=== PATIENT | male | born 1950 | race Caucasian/White ===

== ENCOUNTER 2024-12-20 21:00 | Inpatient (IN) | payer OTHER ==
[~2024-12-20] VITALS: Ht 177.8 cm; Wt 71.0 kg
--- NOTE | 2024-12-20 21:32 | Physician Documentation ---
History of Present Illness ~ Chief Complaint: Foot pain Stated Complaint: TOES ARE TURNING COLORS Time Seen by MD: 21:25 HPI This is a 74-year-old gentleman with hostile untreated medical comorbidities but no known peripheral arterial disease presents for evaluation of discoloration to his right foot that has been present for about a month, getting worse for the last several days, markedly painful today. No palliating or aggravating factors. Did not attempt to treat it. Not clear why he waited to come in until today but states that he finally had enough. He states that he quit smoking about 20 years ago but restarted a month ago, right about the time he started developing discoloration of the toes. He has been bed-bound for the last several months due to his chronic back pain. No change in back pain. Denies any other symptoms. Medication Reconciliation Allergies: Coded Allergies: No Known Allergies (Unverified , 12/20/24) Review of Systems ROS 10 point review of systems was performed and unless noted above in HPI is negative for acute process/complaint. Physical Exam Vital Signs: Temperature: 98.7, Source: Oral, Heart Rate: 89, Respiratory Rate: 16, BP: 198/101, Pulse Oximetry: 96, Weight: 71.000 Oxygen Flow Rate: 0 Physical Exam GENERAL: Awake, alert, oriented, GCS 15, no apparent distress, non-toxic appearing, answers questions, follows commands appropriately. HEENT: Atraumatic, normocephalic, pupils equal, extraocular muscles intact, sclerae anicteric, mucus membranes moist, oropharynx is clear, no stridor. NECK: supple, full active range of motion, trachea midline, no thyromegaly, no lymphadenopathy, no JVD. CARDIOVASCULAR: regular rate/rhythm, no murmurs/gallops/rubs, Pulses are 2+ in all extremities and symmetric. Capillary refill less than 2 seconds. PULMONARY: Nonlabored, good air movement ,no respiratory distress, speaking in full sentences, clear to auscultation bilaterally, no wheezing, no ronchi, no rales, no accessory muscle use. GASTROINTESTINAL: Soft, non-tender, non-distended, normal active bowel sounds, no organomegaly, no pulsatile masses, no CVA tenderness. NEUROLOGIC: Lucid with normal mental status. Normal facial symmetry. Moves all extremities symmetrically and with purpose. No truncal ataxia. Speech is fluid without evidence of dysarthria or aphasia, no focal deficits appreciated. MUSCULOSKELETAL: There is full range of motion of all extremities. There is no joint pain or joint swelling or joint erythema. There is no muscle pain or tenderness or swelling. EXTREMITIES: warm, well-perfused, no cyanosis, no clubbing, no edema, no acute deformities. Skin: warm, dry, no rashes or lesions, no jaundice, no petechiae orpurpura. No ecchymosis. PSYCHIATRIC: Normal affect, normal insight, normal concentration. Focused exam: [] Right foot is examined. There is dusky purple discoloration to toes one through four with a markedly affected 1st digit. No cap refill on the digits. Range of motion is full. Progress Results/Orders Results/Orders Orders - FACUNDO WEBER DO Saline Lock (12/20/24 21:26) Cta Abdomen Lower Extr Runoff (12/20/24 22:30) Completed Orders - FACUNDO WEBER DO Electrocardiogram (12/20/24 21:26) Cbc/Diff (12/20/24 21:26) CK (12/20/24 21:26) Pt Inr (12/20/24 21:26) PTT (12/20/24 21:26) MG (12/20/24 21:26) Hs Troponin I W Calculations (12/20/24 21:26) CMP (12/20/24 21:26) Cta Abdomen Lower Extr Runoff (12/20/24 22:30) Iohexol 350mg/Ml 50ml Inj (Omnipaque 350 (12/20/24 22:19) Iohexol 350mg/Ml 100ml (Omnipaque 350mg/ (12/20/24 22:19) Hydrocodone/Apap 10/325 (Custer 10/325mg (12/20/24 23:45) Morphine 4mg/Ml Inj. (Morphine Inj.) (12/21/24 03:05) Ondansetron Inj. (Zofran 4mg/2ml Vial) (12/21/24 03:05) Medications Received in ER Medications (Trade) Dose Ordered Sig/[place] Route PRN Reason Start Time Stop Time Status Last Admin Dose Admin (Custer 10/325mg tab) 1 tab ONCE ONCE PO 12/20/24 23:45 12/20/24 23:46 DC 12/20/24 23:52 1 TAB (morphine inj.) 4 mg ONCE ONCE IV 12/21/24 03:05 12/21/24 03:06 DC 12/21/24 03:18 4 MG (Zofran 4mg/2ml vial) 4 mg ONCE ONCE IV 12/21/24 03:05 12/21/24 03:06 DC 12/21/24 03:18 4 MG Vital Signs 12/20/24 12/20/24 12/20/24 12/20/24 21:20 22:32 23:35 23:52 Temp 98.7 Pulse 89 92 Resp 16 19 19 B/P (MAP) 198/101 198/93 (128) Pulse Ox 96 97 O2 Flow Rate 0 0 12/21/24 12/21/24 12/21/24 12/21/24 00:33 01:00 03:00 03:18 Pulse 73 66 64 Resp 14 19 17 19 B/P (MAP) 146/73 (97) 118/61 (80) 135/49 (77) Pulse Ox 98 96 98 O2 Flow Rate 0 0 0 12/21/24 12/21/24 04:06 04:19 Pulse 67 Resp 15 17 B/P (MAP) 141/81 (101) Pulse Ox 97 O2 Flow Rate 0 Laboratory Tests Test 12/20/24 21:34 White Blood Count 12.3 H Red Blood Count 3.67 L Hemoglobin 10.5 L Hematocrit 32.3 L Mean Corpuscular Volume 87.9 Mean Corpuscular Hemoglobin 28.6 Mean Corpuscular Hemoglobin Concent 32.5 L Red Cell Distribution Width 14.2 Platelet Count 460 H Mean Platelet Volume 7.1 L Neutrophils (%) (Auto) 66.4 Lymphocytes (%) (Auto) 24.6 Monocytes (%) (Auto) 5.2 Eosinophils (%) (Auto) 3.3 Basophils (%) (Auto) 0.5 Neutrophils # (Auto) 8.2 H Lymphocytes # (Auto) 3.0 Monocytes # (Auto) 0.6 Eosinophils # (Auto) 0.4 Basophils # (Auto) 0.1 CBC Comment Prothrombin Time 9.8 INR International Normalized Ratio 1.0 Activated Partial Thromboplast Time 25 Coagulation Comments Sodium Level 141 Potassium Level 4.3 Chloride Level 107 Carbon Dioxide Level 23.1 L Anion Gap 11 Blood Urea Nitrogen 36 H Creatinine 1.70 H Estimated GFR/1.73 m2 40 BUN/Creatinine Ratio 21.2 H Glucose Level 116 H Calcium Level 9.1 Magnesium Level 2.3 Total Bilirubin 0.4 Aspartate Amino Transf (AST/SGOT) 28 Alanine Aminotransferase (ALT/SGPT) 25 Alkaline Phosphatase 83 Total Creatine Kinase 178 Troponin I High Sensitivity 21 Total Protein 8.1 Albumin 4.0 Globulin 4.1 Albumin/Globulin Ratio 1.0 L Chemistry Comments Medical Decision Making Findings Facility Status: ED Holds, [facility] process The plan was discussed with the patient, who demonstrates clear understanding of the plan and is in agreement with the plan unless otherwise noted in the chart. All questions have been answered, all concerns were addressed unless otherwise documented. I was available throughout their ED stay for frequent reassessment and questions. Differential Diagnoses (considered and possible or likely): [Peripheral arterial disease, dry gangrene, less likely wet gangrene, clinically not consistent with trench foot, unlikely to represent gout, unlikely to represent cellulitis] ??Differential Diagnoses (considered and unlikely, not requiring evaluation currently): [See above] MDM Data Please see [facility] for the following: Independent Historians and external Records Review. Historian: [Patient] Independent Historians: ?[None] Medication Management: [Reviewed medication list] Social History and determinants: [Reviewed] Please see the body of the note for the following: Any independent interpretations of ECG, imaging studies. All vitals signs/haemodynamics, ordered tests were independently reviewed and interpreted by myself. Nursing triage complaint and vitals reviewed, additional nursing notes were reviewed as available and I agree unless otherwise noted or documented in contradiction in the chart Vital Signs: Independently reviewed Labs: Independently interpreted Imaging: Independently interpreted Old Medical Records: Independently reviewed, see HPI for relevant summary and information Pulse Oximetry: [98%] interpreted as [normal on room air] by me [Accounting Auditor: [Regular Rate, Regular rhythm, no ectopy, NSR] reviewed and interpreted by me] Additionally notably showing: [Hemodynamically stable. Unremarkable laboratory workup. CT shows high brain regularly 90% shows sudden stenosis of the distal right SFA secondary to atheromatous clot.] Tests considered but not ordered include: [Not applicable] Social Determinants of Health Impact: Patient was evaluated in [facility] [place] to healthcare due to below par ratio of patient to medical providers. [] Comorbid Conditions Impacting Present Evaluation and Care/Treatment: [Smoking] Management Discussions with other Healthcare Providers: [Dr. Jordan, vascular surgery.] He requests admission of the patient, we will see him on an inpatient arita. Hospitalist regarding admission Treatment and Disposition Medication Management (Given or considered): [Pain control]. See EMR for details Consideration for Hospitalization/Escalation/Deescalation of Care: Admission for observation has been considered, is necessary for further management of his peripheral arterial disease at the request a specialist ?ED Course:?[No clinical deterioration] ?Shared decision making:?[] Code status:?FULL Please see the full Electronic Medical Record for full details of nursing documentation, medications list, other records of complete past medical history and conditions, vital signs, laboratory studies, and any radiologic study interpretations by radiologists. Portions of this note were completed using [employer] dictation software and as a result there may exist minor errors in spelling. I have reviewed elements of past family and social history and agree as included in note. Departure Impression: Primary Impression: Stenosis of superficial femoral artery Additional Impression: Peripheral arterial disease Referrals: NO PRIMARY CARE PROVIDER (PCP) Signature Scribe Signature: No scribe Attestation: This note accurately reflects clinical decisions, work performed by myself, DO GUS Jimenez NICHOLAS M DO Dec 20, 2024 21:32
[2024-12-20 21:41] LABS: BASOPHILS # (AUTO) 0.1 X10'3 (0-0.2); BASOPHILS % (AUTO) 0.5 % (0-1); EOSINOPHILS # (AUTO) 0.4 X10'3 (0-0.9); EOSINOPHILS % (AUTO) 3.3 % (0-6); HEMATOCRIT 32.3 % (42.0-52.0); HEMOGLOBIN 10.5 g/dl (14.0-17.9); LYMPHOCYTES % (AUTO) 24.6 % (21-51); MEAN CORPUSCULAR HEMOGLOBIN 28.6 PG (27.0-31.0); MEAN CORPUSCULAR HGB CONC 32.5 g/dL (33.0-36.5); MEAN CORPUSCULAR VOLUME 87.9 FL (78-98); MEAN PLATELET VOLUME 7.1 FL (7.4-10.4); MONOCYTES # (AUTO) 0.6 X10'3 (0-0.9); MONOCYTES % (AUTO) 5.2 % (2-12); NEUTROPHILS # (AUTO) 8.2 X10'3 (1.8-7.7); NEUTROPHILS % (AUTO) 66.4 % (42-75); PLATELET COUNT 460 X10'3 (140-440); RED BLOOD COUNT 3.67 X10'6 (4.70-6.10); RED CELL DISTRIBUTION WIDTH 14.2 % (11.5-14.5); WHITE BLOOD COUNT 12.3 X10'3 (4.5-11.0)
--- NOTE | 2024-12-20 21:41 | ELECTROCARDIOGRAPH REPORT ---
[facility] Test Date: 2024-12-20 Test Time: 21:37:21 Pat Name: TONY MCCLENDON Department: [facility]- Patient ID: [facility]-[id number] Room: Gender: M Shingles Roofer: : 1950 Requested By: FACUNDO WEBER Order Number: [id number] Reading MD: Measurements Intervals [place] Rate: 83 P: -17 WY: 208 QRS: -24 QRSD: 103 T: 55 QT: 362 QTc: 426 Interpretive Statements Sinus rhythm Sinus pause Borderline left axis deviation Abnormal R-wave progression, early transition Please click the below link to view image of tracing.
[2024-12-20 21:53] LABS: APTT 25 SECONDS (22-32); PROTHROMBIN TIME 9.8 SECONDS (9.0-12.0)
[2024-12-20 21:55] LABS: ALANINE AMINOTRANSFERASE 25 U/L (12-78); ALKALINE PHOSPHATASE 83 IU/L (46-116); ANION GAP 11 (8-16); ASPARTATE AMINO TRANSFERASE 28 U/L (10-37); BILIRUBIN,TOTAL 0.4 MG/DL (0.1-1.0); BLOOD UREA NITROGEN 36 MG/DL (7-18); BUN/CREATININE RATIO 21.2 (10.0-20.0); CALCIUM 9.1 MG/DL (8.5-10.1); CHLORIDE 107 MMOL/L (99-107); CREATINE KINASE 178 U/L (39-308); GLUCOSE 116 MG/DL (70-104); MAGNESIUM 2.3 MG/DL (1.5-2.4); POTASSIUM 4.3 MMOL/L (3.5-5.1); SODIUM 141 MMOL/L (135-145); TOTAL CARBON DIOXIDE 23.1 MMOL/L (24-32); TOTAL PROTEIN 8.1 G/DL (6.4-8.2); eCRCL 39 ML/MIN; eGFR 40 ML/MIN
[2024-12-20] MEDS ORDERED: iohexol 350 MG/ML 50ML vial IV ONE (22:19)
[2024-12-20] MEDS ORDERED: iohexol 350MG/ML 100ml bottle IV ONE (22:19)
[2024-12-20] MEDS: HYDROcodone/acetaminophen 10/325mg tab PO ONE (23:52)
[2024-12-21] MEDS: ondansetron/PF 4mg/2ml inj IV ONE (03:18)
[2024-12-21] MEDS: morphine 4 MG/ML inj SYRINge IV ONE (03:18)
--- NOTE | 2024-12-21 03:58 | RADIOLOGY REPORT ---
Examination: CT CTA ABDOMEN LOWER EXTR RUNOFF CLINICAL HISTORY: poor perfusion RLE/discoloured forefoot Comparison: None Technique: Using helical technique, CT data from the lung bases through the toes was obtained during rapid IV contrast infusion. The examination was timed to the arterial system to generate a CT angiogr aphic study. 3D images were generated at an independent work station. Dose reduction techniques inclu ded automated exposure control. Radiation Dose Information: CT Dose: CTDI volume is 4.4 mGy. Dose-length product is 1701 mGy*cm Findings: Vascular: Abdominal aorta: Normal caliber, patent Celiac artery: Patent SMA: Patent Renal arteries: Patent FRANC: Patent Right lower extremity: Common iliac artery: Patent External iliac artery: Patent Internal iliac artery: Patent Common femoral artery: Patent Profunda femoral artery: Patent Superficial femoral artery: High-grade 90% short-segment stenosis of the distal right superficial fem oral artery. Popliteal artery: Patent Anterior tibial artery: Patent Peroneal tibial trunk: Patent Peroneal artery: Patent Posterior tibial artery: Patent Dorsalis pedis artery: Patent Left lower extremity: Common iliac artery: Patent External iliac artery: Patent Internal iliac artery: Patent Common femoral artery: Patent Profunda femoral artery: Patent Superficial femoral artery: Patent Popliteal artery: Patent Anterior tibial artery: Patent Peroneal tibial trunk: Patent Peroneal artery: Patent Posterior tibial artery: Patent Dorsalis pedis artery: Patent Portal/mesenteric veins: normal Abdominal systemic veins: normal Abdomen/Pelvis: Liver: The liver is normal in size and morphology,. No focal hepatic lesion. The portal veins are pat ent. Biliary System: Gallbladder: Absent Bile Ducts: No intrahepatic or extrahepatic biliary ductal dilation. Spleen: No splenomegaly or focal splenic lesion. Pancreas: No masses or ductal dilation. Adrenals: Normal. Urinary System: Kidneys and Ureters: Normal in size and location. No renal masses. No renal or ureteral calculi. No hydronephrosis or hydroureter. Left midpole cyst measures 4.4 cm. Bladder: Normal. GI System: Moderate hiatal hernia. Diverticulosis. Vasculature: Arteries: Abdominal aorta is normal in caliber. Splanchnic arteries are proximally patent. Lymph nodes: No lymphadenopathy. Peritoneal cavity and surface: No free fluid. No pneumoperitoneum. Soft Tissues: Large fat and bowel containing right inguinal hernia. Small left inguinal hernia. Reproductive Organs: Normal. Bones: No acute fracture or aggressive osseous lesion. Intramedullary addi in the left tibia. Impression: Right lower extremity: High-grade, greater than 90% short-segment stenosis of the distal right superficial femoral artery se condary to atheromatous clot. Patent 3 vessel runoff Left Lower Extremity: 1. Patent inflow 2. Patent outflow 3. Patent 3 vessel runoff Abdomen/Pelvis: 1. No acute abdominal pelvic process.
[2024-12-21] MEDS ORDERED: OMEP40CA21 PO (05:57)
[2024-12-21] MEDS: HYDROmorphone inj. 0.5 MG/0.5 ML DISP.SYRIN IV ONE (07:08)
[2024-12-21] MEDS ORDERED: magnesium sulf-water 4G/100mL 100 ML IV PRN (07:15)
[2024-12-21] MEDS ORDERED: HYDROcodone/acetaminophen 5mg/325mg tablet PO PRN (07:15)
[2024-12-21] MEDS ORDERED: morphine 2 MG/ML inj. syringe IV PRN ×2 (07:15)
[2024-12-21] MEDS ORDERED: magnesium sulf-water 2g/50mL 50 ML IV PRN (07:15)
[2024-12-21] MEDS ORDERED: potassium Cl 40MEQ/1/2NS 520ml 520 ML IV PRN (07:15)
[2024-12-21] MEDS ORDERED: heparin 10,000 units/1 ML INJ IV PRN (07:15)
[2024-12-21] MEDS ORDERED: potassium Cl 20 mEq SR tablet PO PRN (07:15)
[2024-12-21] MEDS ORDERED: acetaminophen 325mg tablet PO PRN (07:15)
[2024-12-21] MEDS ORDERED: magnesium Cl slow-release 64mg tablet PO PRN (07:15)
[2024-12-21] MEDS ORDERED: ondansetron/PF 4mg/2ml inj IV PRN (07:15)
[2024-12-21] MEDS: normal saline 1000ml 1,000 ML IV SCH (07:42)
[2024-12-21] MEDS: heparin 10,000 units/1 ML INJ IV ONE (08:27)
[2024-12-21] MEDS: heparin 25,000 UNIT/250ml bag 250 ML IV PRN ×2 (08:29→16:30)
[2024-12-21 08:55] VITALS: BP 167/65; PULSE 66; RESP 15; RESP 16; TEMP 97.9; O2SAT 97
[2024-12-21] MEDS ORDERED: heparin 25,000 UNIT/250ml bag 250 ML IV PRN (09:30)
[2024-12-21 10:00] VITALS: BP 146/59; PULSE 66; RESP 16; TEMP 97; O2SAT 98
[2024-12-21] MEDS: HYDROcodone/acetaminophen 10/325mg tab PO PRN (11:31)
[2024-12-21] MEDS: HYDROmorphone 1 mg/ml syringe IV PRN (14:37)
[2024-12-21] MEDS: MESSAGE TO NURSING IV ONE ×2 (16:27→22:46)
[2024-12-21 18:00] VITALS: BP 134/62; PULSE 60; RESP 17; TEMP 97.3; O2SAT 96
[2024-12-21 20:00] VITALS: RESP 16; O2SAT 96
--- NOTE | 2024-12-21 20:21 | HISTORY AND PHYSICAL ---
History & Physical Providers to CC ~ History of Present Illness Reason for Admit\Complaint: Bluish discoloration of toes over right foot History of Present Illness Patient is 74-year-old male with known history of upper back pain, GERD Hickman's esophagus and Crohn's disease. He mentioned that his right great toe was hurting for almost for a month but in last couple of days he noticed the blue discoloration over his right feet. He also restarted smoking which he quit. Patient is able to ambulate but feels pain over right lower extremity. Currently he is only taking omeprazole and not on any other medication. He used to follow in [facility] but currently does not have any PCP. He has upper back pain and his balance is not very good currently. Further workup done in ER which showed signs of Stenosis of right superficial femoral artery. ER physician contacted Dr. Powell. He requests admission of the patient, we will see him on an inpatient arita. Hospitalist services contacted for admission. Patient denied any other symptoms Allergies: Coded Allergies: No Known Allergies (Unverified , 12/20/24) Home Medications Home Medications Active Reported Prilosec (Omeprazole) 40 Mg Capsule 1 Cap PO DAILY 30 Days Past Medical History Past Medical History history of upper back pain, GERD Hickman's esophagus and Crohn's disease Past Surgical History Surgical History Comment No pertinent surgical history Past Social History Social History Comment He states that he quit smoking about 20 years ago but restarted a month ago, patient denied use of any drugs or alcohol. He is able to ambulate with the help of stick ROS ROS Review of system as mentioned above in HPI rest of the review of system unremarkable Exam Vitals: Vital Signs Date Time Temp Pulse Resp B/P (MAP) Pulse Ox O2 Delivery O2 Flow Rate FiO2 12/21/24 18:19 16 12/21/24 10:00 97.0 66 146/59 (88) 98 Room Air 12/21/24 04:06 0 General: General-patient not in any acute distress, alert awake oriented, chronically ill-appearing/age-appropriate HEENT-atraumatic normocephalic, neck supple without elevated JVD, no thyromegaly or carotid bruit. No lymphadenopathy bilaterally. Eyes-no icterus or pallor seen in eyes Chest-clear to auscultation bilaterally, breathing nonlabored no tachypnea, no wheezing, no crepitation, no crackles. Heart-S1-S2 normal, regular heart rate no murmur Abdomen bowel sounds positive on auscultation, soft nondistended nontender no guarding, no rigidity Skin/ extremity- signs of bluish discoloration present over right great toe and 2nd 3rd and 4th toes Neurology-grossly intact, nonfocal alert awake oriented Extremity- no pedal edema able to move all 4 extremities. Pedal pulsations present on exam bilaterally on feet Psychiatry - patient is not confused or agitated cooperated during physical examination Diagnostic Data Last Recorded Lab Results: 12/20/24213312/20/242133 Diagnostic Data: Laboratory Tests Test 12/20/24 21:34 12/21/24 14:54 Prothrombin Time 9.8 SECONDS (9.0-12.0) INR International Normalized Ratio 1.0 INR Activated Partial Thromboplast Time 25 SECONDS (22-32) APTT (Heparin Protocol) 81 SECONDS (45-60) H Coagulation Comments Additional Plan Patient is 74-year-old male with known history of upper back pain, GERD Hickman's esophagus and Crohn's disease. Patient is admitted for Stenosis of right superficial femoral artery. ER physician contacted Dr. Powell. He requests admission of the patient, we will see him on an inpatient arita. Patient is started on heparin drip and pain medication ordered for pain control. Home medication reconciliation done in EMR. We will continue to follow patient's labs and vitals. We will be admitted to surgical floor for further management. Dr. Powell aware regarding this patient's admission and further recommendation as per Dr. Duvall. Patient is strongly advised to stop smoking and risks explained. Code status discussed with the patient patient wishes DNR DNI. Further management depending on surgical consultation. I will continue to follow patient in a.m.. Date of Service: Dec 21, 2024 Billing Provider: RAUL SOTO MD Common Visit Codes: [id number] INP/OBS CARE (HIGH) Secondary Visit Codes: [id number] CARE PLAN 30 MINUTES RAUL SOTO MD Dec 21, 2024 20:21
[2024-12-21] MEDS: nicotine 14mg patch - 24hr TD SCH (20:25)
[2024-12-21] MEDS: acetaminophen 325mg tablet PO PRN (21:13)
[2024-12-21 22:00] VITALS: BP 165/72; PULSE 65; RESP 22; TEMP 97.9; O2SAT 97
[2024-12-21] MEDS: HYDROmorphone 2mg tablet PO PRN (22:29)
[2024-12-21] MEDS: pantoprazole 40mg Tablet.DR PO ONE (22:30)
[2024-12-22] VITALS (7 sets, daily range): BP systolic 108–166; BP diastolic 52–82; PULSE 74–83; RESP 14–18; TEMP 97.4–98.6; O2SAT 95–97
[2024-12-22] MEDS: traZODone 50mg tablet PO ONE (02:20)
[2024-12-22 04:00] LABS: BASOPHILS % (AUTO) 0.4 % (0-1); EOSINOPHILS # (AUTO) 0.5 X10'3 (0-0.9); EOSINOPHILS % (AUTO) 4.8 % (0-6); HEMATOCRIT 31.1 % (42.0-52.0); HEMOGLOBIN 10.3 g/dl (14.0-17.9); LYMPHOCYTES # (AUTO) 3.1 X10'3 (1.1-4.8); LYMPHOCYTES % (AUTO) 28.8 % (21-51); MEAN CORPUSCULAR HEMOGLOBIN 29.2 PG (27.0-31.0); MEAN CORPUSCULAR HGB CONC 33.2 g/dL (33.0-36.5); MEAN PLATELET VOLUME 7.2 FL (7.4-10.4); MONOCYTES # (AUTO) 0.6 X10'3 (0-0.9); MONOCYTES % (AUTO) 5.4 % (2-12); NEUTROPHILS # (AUTO) 6.4 X10'3 (1.8-7.7); NEUTROPHILS % (AUTO) 60.6 % (42-75); PLATELET COUNT 395 X10'3 (140-440); RED BLOOD COUNT 3.53 X10'6 (4.70-6.10); RED CELL DISTRIBUTION WIDTH 14.1 % (11.5-14.5); WHITE BLOOD COUNT 10.6 X10'3 (4.5-11.0)
[2024-12-22 04:09] LABS: ANION GAP 12 (8-16); BLOOD UREA NITROGEN 23 MG/DL (7-18); BUN/CREATININE RATIO 15.3 (10.0-20.0); CALCIUM 8.9 MG/DL (8.5-10.1); CHLORIDE 105 MMOL/L (99-107); POTASSIUM 4.4 MMOL/L (3.5-5.1); SODIUM 140 MMOL/L (135-145); TOTAL CARBON DIOXIDE 23.4 MMOL/L (24-32); eCRCL 44 ML/MIN; eGFR 46 ML/MIN
[2024-12-22 04:12] LABS: GLUCOSE 118 MG/DL (70-104)
[2024-12-22] MEDS: MESSAGE TO NURSING IV ONE ×3 (04:20→19:23)
[2024-12-22] MEDS ORDERED: HYDROmorphone 1mg tablet (1/2 of 2mg tablet) PO PRN (07:22)
[2024-12-22] MEDS: pantoprazole 40mg Tablet.DR PO SCH (08:10)
[2024-12-22] MEDS ORDERED: HYDROmorphone 2mg tablet PO PRN (11:10)
[2024-12-22] MEDS: HYDROmorphone 2mg tablet PO PRN ×2 (15:26→19:30)
--- NOTE | 2024-12-22 18:05 | PROGRESS NOTE ---
Progress Note ID Providers to CC ~ Progress Note Progress Note: pt seen-needs angio and stent per ir in am PAPO LOPEZ MD Dec 22, 2024 18:05
[2024-12-22] MEDS: heparin 10,000 units/1 ML INJ IV PRN (18:46)
--- NOTE | 2024-12-22 19:16 | PROGRESS NOTE ---
Daily Progress Note Providers to CC ~ Antibiotic Timeout Antibiotic Ordered?: No Subjective Patient was seen in his room concerned about the pain medication wanted to get stronger pain medication for pain control. Waiting to see Dr. Duvall for evaluation Objective Vital Signs Date Time Temp Pulse Resp B/P (MAP) Pulse Ox O2 Delivery O2 Flow Rate FiO2 12/22/24 16:26 15 12/22/24 11:55 97.6 74 130/52 (78) 95 Room Air 12/22/24 05:38 0 21 Result Diagram: 12/22/24 0345 12/22/24 0345 General-patient not in any acute distress, alert awake oriented, chronically ill-appearing/age-appropriate HEENT-atraumatic normocephalic, neck supple without elevated JVD, no thyromegaly or carotid bruit. No lymphadenopathy bilaterally. Eyes-no icterus or pallor seen in eyes Chest-clear to auscultation bilaterally, breathing nonlabored no tachypnea, no wheezing, no crepitation, no crackles. Heart-S1-S2 normal, regular heart rate no murmur Abdomen bowel sounds positive on auscultation, soft nondistended nontender no guarding, no rigidity Skin/ extremity- signs of bluish discoloration present over right great toe and 2nd 3rd and 4th toes Neurology-grossly intact, nonfocal alert awake oriented Extremity- no pedal edema able to move all 4 extremities. Pedal pulsations present on exam bilaterally on feet Psychiatry - patient is not confused or agitated cooperated during physical examination Coagulation Studies Laboratory Tests Test 12/20/24 21:34 12/22/24 17:46 Prothrombin Time 9.8 SECONDS (9.0-12.0) INR International Normalized Ratio 1.0 INR Activated Partial Thromboplast Time 25 SECONDS (22-32) APTT (Heparin Protocol) 43 SECONDS (45-75) L Coagulation Comments Problem\Assessment\Plan Patient is 74-year-old male with known history of upper back pain, GERD Hickman's esophagus and Crohn's disease. Patient is admitted for Stenosis of right superficial femoral artery. ER physician contacted Dr. Powell. He requests admission of the patient, we will see him on an inpatient arita. # Stenosis of right superficial femoral artery, PVD - on heparin drip and pain medication ordered for pain control. Dr. Kenny evaluated the patient in his per his note he needs angio and stent per IR in a.m. # Tobacco abuse - Patient is strongly advised to stop smoking and risks explained. # acute kidney injury-continue on IV fluids we will monitor patient's renal function # Code status discussed with the patient patient wishes DNR DNI. Further management depending on surgical consultation. Incoming hospitalist will continue to follow patient in a.m. Date of Service: Dec 22, 2024 Billing Provider: RAUL SOTO MD Common Visit Codes: [id number] INP/OBS CARE(HIGH) RAUL SOTO MD Dec 22, 2024 19:16
[2024-12-23] VITALS (12 sets, daily range): BP systolic 112–161; BP diastolic 55–103; PULSE 70–114; RESP 14–22; TEMP 97.4–98.3; O2SAT 9–96
[2024-12-23 01:57] LABS: BASOPHILS % (AUTO) 0.3 % (0-1); EOSINOPHILS # (AUTO) 0.2 X10'3 (0-0.9); EOSINOPHILS % (AUTO) 1.4 % (0-6); HEMATOCRIT 27.9 % (42.0-52.0); HEMOGLOBIN 9.4 g/dl (14.0-17.9); LYMPHOCYTES # (AUTO) 2.2 X10'3 (1.1-4.8); LYMPHOCYTES % (AUTO) 20.9 % (21-51); MEAN CORPUSCULAR HEMOGLOBIN 29.5 PG (27.0-31.0); MEAN CORPUSCULAR HGB CONC 33.7 g/dL (33.0-36.5); MEAN CORPUSCULAR VOLUME 87.4 FL (78-98); MEAN PLATELET VOLUME 7.6 FL (7.4-10.4); MONOCYTES # (AUTO) 0.6 X10'3 (0-0.9); MONOCYTES % (AUTO) 5.3 % (2-12); NEUTROPHILS # (AUTO) 7.6 X10'3 (1.8-7.7); NEUTROPHILS % (AUTO) 72.1 % (42-75); PLATELET COUNT 330 X10'3 (140-440); WHITE BLOOD COUNT 10.5 X10'3 (4.5-11.0)
[2024-12-23 02:06] LABS: ALBUMIN 3.8 G/DL (3.4-5.0); ANION GAP 11 (8-16); BLOOD UREA NITROGEN 17 MG/DL (7-18); BUN/CREATININE RATIO 12.5 (10.0-20.0); CALCIUM 8.6 MG/DL (8.5-10.1); CHLORIDE 107 MMOL/L (99-107); CREATININE 1.36 MG/DL (0.60-1.10); POTASSIUM 4.7 MMOL/L (3.5-5.1); SODIUM 142 MMOL/L (135-145); TOTAL CARBON DIOXIDE 23.8 MMOL/L (24-32); eCRCL 49 ML/MIN; eGFR 51 ML/MIN
[2024-12-23 02:13] LABS: GLUCOSE 108 MG/DL (70-104)
[2024-12-23] MEDS: MESSAGE TO NURSING IV ONE ×4 (02:36→18:30)
--- NOTE | 2024-12-23 03:26 | VASCULAR REPORT ---
EXAM: VASC VL KEVAN ANKLE/BRACHIAL INDEX CLINICAL HISTORY: Peripheral arterial disease Peripheral vascular disease COMPARISON: None TECHNIQUE: Bilateral systolic ankle and brachial pressures are obtained, with ankle pulse volume waveforms and i ndices. FINDINGS: Pressures: Right Left Brachial 180 mmHg 170 mmHg PT 120 mmHg noncompressible mmHg DP 112 mmHg noncompressible mmHg KEVAN: Right Left 0.67 n/a Pulse volume waveforms: Monophasic on the right and multiphasic on the left IMPRESSION: Right KEVAN, 0.67 suggesting moderate disease at rest. Monophasic waveforms on the right suggestive of underlying peripheral arterial disease. Left KEVAN unable to be obtained secondary to noncompressible arteries suggesting underlying calcific a rterial atherosclerotic disease. Multiphasic waveforms are present in the left lower extremity. 1.0-1.4: normal 0.91-0.99 borderline 0.9: abnormal (i.e. PAD) 0.4-0.9: [id number] PAD <0.4: suggestive of severe PAD
--- NOTE | 2024-12-23 08:31 | RADIOLOGY REPORT ---
CHEST RADIOGRAPH Indication: Surgery Technique: Single frontal view of the chest was obtained Comparison: None FINDINGS: Lines and Tubes: None Lungs: No focal consolidation. Pleura: No effusion. No pneumothorax. Cardiomediastinal contours: Unremarkable Bones: No acute osseous abnormality. Old left rib fractures. IMPRESSION: 1. No acute cardiopulmonary disease.
--- NOTE | 2024-12-23 10:21 | PROGRESS NOTE ---
Progress Note ID Providers to CC ~ Progress Note Progress Note: ijeoma noted/awaiting angio PAPO LOPEZ MD Dec 23, 2024 10:21
[2024-12-23] MEDS: LORazepam 0.5 MG tablet PO PRN (11:17)
[2024-12-23] MEDS ORDERED: iohexol 300mg/ml 100ml inj. ONE (17:26)
[2024-12-23] MEDS ORDERED: midazolam 1 mg/ML 2ml injection ONE ×2 (17:28→18:11)
[2024-12-23] MEDS ORDERED: fentaNYL/PF 50MCG/1 ML 2ML syringe ONE ×2 (17:28→18:11)
[2024-12-23] MEDS ORDERED: heparin 1,000 UNITS/NS 500ml 500 ML ONE (17:28)
--- NOTE | 2024-12-23 17:57 | PROGRESS NOTE ---
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 Had blue discoloration of right toes and pain. Monophasic flow on US eval. Risks benefits alt of angiography and possible intervention d/w pt and informed consent disclosed. Mal 2, ASA 2. EAMON OJEDA MD Dec 23, 2024 17:57
[2024-12-23] MEDS ORDERED: diphenhydrAMINE 50 mg/ml inj ONE (18:12)
--- NOTE | 2024-12-23 18:14 | PROGRESS NOTE ---
Daily Progress Note Providers to CC ~ Antibiotic Timeout Antibiotic Ordered?: No Subjective The patient has a questions about the angiogram and possible stenting of the SFA I informed the patient that he would need to speak with Interventional Radiology for specifics I did realize some general information to the patient however. Due to heavy workload interventional Radiology is taking the patient for the procedure tomorrow. Objective Vital Signs Date Time Temp Pulse Resp B/P (MAP) Pulse Ox O2 Delivery O2 Flow Rate FiO2 12/23/24 12:51 18 12/23/24 10:00 97.4 70 160/74 (102) 95 Room Air 12/23/24 06:00 0 21 Result Diagram: 12/23/24 0105 12/23/24 0105 Gen. No acute distress alert and oriented 4 Lungs clear to ascultation bilaterally, no wheezes rales or rhonchi appreciated Heart normal sinus rhythm no murmurs rubs or clicks noted Abdomen soft nontender bowel sounds are normoactive Lower extremities no clubbing cyanosis, nor edema appreciated bilaterally Coagulation Studies Laboratory Tests Test 12/20/24 21:34 12/23/24 17:28 Prothrombin Time 9.8 SECONDS (9.0-12.0) INR International Normalized Ratio 1.0 INR Activated Partial Thromboplast Time 25 SECONDS (22-32) APTT (Heparin Protocol) 60 SECONDS (45-75) Coagulation Comments Problem\Assessment\Plan Patient is 74-year-old male with known history of upper back pain, GERD Hickman's esophagus and Crohn's disease. Patient is admitted for Stenosis of right superficial femoral artery. ER physician contacted Dr. Powell. He requests admission of the patient, we will see him on an inpatient arita. # acute Stenosis of right superficial femoral artery, PVD - on heparin drip and pain medication ordered for pain control. Dr. Kenny evaluated the patient in his per his note he needs angio and stent per IR in a.m. 12/[address] Patel who consented the patient for an angiogram anticipate for tomorrow with possible stenting # Tobacco abuse - Patient is strongly advised to stop smoking and risks explained. # acute kidney injury possibly secondary to renal tubular stasis-continue on IV fluids we will monitor patient's renal function # normocytic anemia-monitor daily CBC and transfuse if hemoglobin is below 7.0 # Code status discussed with the patient patient wishes DNR DNI. Date of Service: Dec 23, 2024 Billing Provider: JUANCHO GARLAND DO Common Visit Codes: [id number] INP/OBS CARE(HIGH) JUANCHO GARLAND DO Dec 23, 2024 18:14
[2024-12-23] MEDS ORDERED: hydrALAZINE 20mg/ml inj. ONE ×2 (18:25→19:10)
[2024-12-23] MEDS ORDERED: heparin 1,000unit/ml 10ml vial 10 ML ONE (18:32)
[2024-12-23] MEDS ORDERED: metoprolol tartrate 1mg/ml inj IV ONE (19:17)
[2024-12-23] MEDS: normal saline 1000ml 1,000 ML IV SCH (19:35)
--- NOTE | 2024-12-23 19:39 | PROGRESS NOTE ---
Progress Note - Angio Providers to CC ~ Angio Progress Note: Successful RSFA at adductor canal 99% stenosis treatment with 5mm x 60 mm self expanding stent and 5mm lighter captain. No residual stenosis. EBL less than 10cc. Complications none. MYNX at LCFA access site. Will be dictated. Rec BP control 140-170 max. Resume heparin at prior rate once on nursing floor, no bolus. EAMON OJEDA MD Dec 23, 2024 19:39
[2024-12-24] VITALS (7 sets, daily range): BP systolic 117–138; BP diastolic 48–67; PULSE 86–94; RESP 16–20; TEMP 98–99.1; O2SAT 87–96
[2024-12-24] MEDS: heparin 25,000 UNIT/250ml bag 250 ML IV PRN (01:04)
[2024-12-24 08:58] LABS: BASOPHILS % (AUTO) 0.2 % (0-1); EOSINOPHILS % (AUTO) 0.1 % (0-6); HEMATOCRIT 30.7 % (42.0-52.0); HEMOGLOBIN 10.1 g/dl (14.0-17.9); LYMPHOCYTES # (AUTO) 1.4 X10'3 (1.1-4.8); MEAN CORPUSCULAR HEMOGLOBIN 29.1 PG (27.0-31.0); MEAN CORPUSCULAR HGB CONC 33.1 g/dL (33.0-36.5); MEAN CORPUSCULAR VOLUME 88.1 FL (78-98); MEAN PLATELET VOLUME 7.5 FL (7.4-10.4); MONOCYTES # (AUTO) 0.6 X10'3 (0-0.9); MONOCYTES % (AUTO) 3.7 % (2-12); NEUTROPHILS # (AUTO) 15.2 X10'3 (1.8-7.7); PLATELET COUNT 350 X10'3 (140-440); RED BLOOD COUNT 3.48 X10'6 (4.70-6.10); RED CELL DISTRIBUTION WIDTH 14.1 % (11.5-14.5); WHITE BLOOD COUNT 17.3 X10'3 (4.5-11.0)
[2024-12-24 09:17] LABS: APTT 73 SECONDS (22-32)
[2024-12-24] MEDS: MESSAGE TO NURSING IV ONE (09:25)
[2024-12-24 10:06] LABS: ALBUMIN 3.7 G/DL (3.4-5.0); ANION GAP 18 (8-16); BLOOD UREA NITROGEN 16 MG/DL (7-18); BUN/CREATININE RATIO 11.6 (10.0-20.0); CALCIUM 9.1 MG/DL (8.5-10.1); CHLORIDE 102 MMOL/L (99-107); CREATININE 1.38 MG/DL (0.60-1.10); POTASSIUM 4.4 MMOL/L (3.5-5.1); SODIUM 142 MMOL/L (135-145); TOTAL CARBON DIOXIDE 22.2 MMOL/L (24-32); eCRCL 48 ML/MIN; eGFR 51 ML/MIN
[2024-12-24 10:07] LABS: GLUCOSE 134 MG/DL (70-104)
--- NOTE | 2024-12-24 11:30 | RADIOLOGY REPORT ---
Pelvic angiography including right lower extremity arteriography and subsequent intervention right superficial femoral artery angioplasty and stenting HISTORY: Monophasic flow distal right lower extremity with blue discoloration of the toes several days ago. Has been on heparin. Slight improvement. Numbness and tingling in the toes at the time of the blue discoloration. Suspect lesion within the superficial femoral artery. Long-term history of smoking quit 20 years ago but recently restarted. The para procedures included the following 1. Access of left common femoral artery with subsequent pelvic angiography after first order selection abdominal aorta. 2. Contralateral third order selection of the right popliteal artery for subsequent angioplasty and stenting of the right superficial femoral artery. 3. Right lower extremity angiography to the foot. 4.Mynx closure of left common femoral artery access site. After explanation of the above procedure and informed consent, patient was prepped and draped in usual sterile fashion. A surgical timeout was performed. Next, a Sos Omni catheter was advanced to the abdominal aorta and a pelvic and gram was performed. This was followed by selecting the contralateral right common iliac artery with an angled catheter and subsequently selecting the distal external iliac artery for angiography to the foot. Next, after discovery of a high-grade 95% plus focal stenosis at the distal superficial femoral artery near the adductor canal, intervention was planned. Initially a 5 mm x 60 mm self-expanding life stent by Bard was deployed across the stenosis with mild residual stenosis but excellent wall opposition. Next, a 5 mm x 20 mm [place] balloon was inflated at the site of the stenosis with post angioplasty angiography demonstrating excellent results and no evidence of residual stenosis and no evidence of extravasation. Angiography to the foot demonstrated a patent trifurcation and patent flow to the foot including a complete plantar arch. A total of 35 Omnipaque 300 contrast used in the procedure. Total sedation time was 90 minutes start time at 1807 hours and completion time at 1937 hours. Total of 8 cc 1% lidocaine solution used for local anesthesia. A total of 4 mg Versed and 200 mcg fentanyl given intravenously. The fluoroscopy time was 11.7 minutes with dose of 126 mGy. A total of 2000 units heparin was given intravenously just prior to the placement of the stent. A total of 40 mg hydralazine was given to the patient during the procedure in divided doses for management of mild hypertension. Next, oblique angiography of the left common femoral artery access site demonstrated no evidence of stenosis and evidence for adequate vessel size to place a Mynx arterial closure device. This was deployed successfully. IMPRESSION: Successful angioplasty and stenting of high-grade 95% focal stenosis of the distal right superficial femoral artery at the adductor canal. No evidence of residual stenosis. Excellent arterial outflow to the foot.
--- NOTE | 2024-12-24 15:47 | PROGRESS NOTE ---
Progress Note ID Providers to CC ~ Progress Note Progress Note: DOING WELL/DC HOME IN AM PAPO LOPEZ MD Dec 24, 2024 15:47
[2024-12-24] MEDS ORDERED: HYDROcodone/acetaminophen 5mg/325mg tablet PO PRN (17:45)
[2024-12-24] MEDS: aspirin 81mg tab.chew PO ONE (20:35)
[2024-12-24] MEDS: HYDROcodone/acetaminophen 10/325mg tab PO PRN (20:36)
[2024-12-24] MEDS: nortriptyline 10mg capsule PO SCH (20:36)
--- NOTE | 2024-12-24 21:06 | PROGRESS NOTE ---
Daily Progress Note Providers to CC ~ Antibiotic Timeout Antibiotic Ordered?: No Subjective The patient was experiencing a throbbing pain in his right thigh where he had surgery he has oral Dilaudid available however the patient experiences pain an hour or two prior to the next dose being available we are changing his pain medication to [place] and I am adding 10 mg of nortriptyline at night. The patient is requiring 2 L of oxygen and had restarted smoking cigarettes a month prior to hospitalization however only smoking a couple of cigarettes a day. The patient's did okay with physical therapy however they are recommending an additional treatment prior to being discharged home with home health. Heparin drip was discontinued the patient is started on aspirin and Plavix. Objective Vital Signs Date Time Temp Pulse Resp B/P (MAP) Pulse Ox O2 Delivery O2 Flow Rate FiO2 12/24/24 20:36 16 12/24/24 10:30 93 Nasal Cannula 2.0 12/24/24 10:00 98.7 94 138/48 (78) 12/23/24 20:00 21 Result Diagram: 12/24/24 0831 12/24/24 0831 Gen. No acute distress alert and oriented 4 Lungs clear to ascultation bilaterally, no wheezes rales or rhonchi appreciated Heart normal sinus rhythm no murmurs rubs or clicks noted Abdomen soft nontender bowel sounds are normoactive Lower extremities no clubbing cyanosis, nor edema appreciated bilaterally Coagulation Studies Laboratory Tests Test 12/20/24 21:34 12/24/24 08:31 12/24/24 15:36 Prothrombin Time 9.8 SECONDS (9.0-12.0) INR International Normalized Ratio 1.0 INR Activated Partial Thromboplast Time 73 SECONDS (22-32) *H APTT (Heparin Protocol) 90 SECONDS (45-75) H Coagulation Comments Problem\Assessment\Plan Patient is 74-year-old male with known history of upper back pain, GERD Hickman's esophagus and Crohn's disease. Patient is admitted for Stenosis of right superficial femoral artery. ER physician contacted Dr. Powell. He requests admission of the patient, we will see him on an inpatient arita. # acute Stenosis of right superficial femoral artery, PVD - on heparin drip and pain medication ordered for pain control. Dr. Kenny evaluated the patient in his per his note he needs angio and stent per IR in a.m. 12/23 status post angiogram with stenting with interventional radiologist Dr. Aron Patel on the evening of the 12/24 heparin drip was stopped the patient is started on aspirin and Plavix # right groin and thigh pain- Change oral Dilaudid to oral [place] Add nortriptyline 10 mg q.h.s. # Tobacco abuse-I spent 12 minutes discussing smoking cessation with the patient including the risk of continuing smoke: Lung cancer, stroke, heart attack, the risk of reoccurrence of peripheral vascular disease including further procedures and risk of losing limb ischemia The expense of smoking cigarettes and how cigarettes have been scientifically engineered to be as addictive as humanly possible. The patient has accepted a 14 mg nicotine patch. # acute kidney injury possibly secondary to renal tubular stasis-continue on IV fluids we will monitor patient's renal function # normocytic anemia-monitor daily CBC and transfuse if hemoglobin is below 7.0 # Code status discussed with the patient patient wishes DNR DNI. Disposition home in the a.m. with home health after one additional physical therapy session. Date of Service: Dec 24, 2024 Billing Provider: JUANCHO GARLAND DO Common Visit Codes: [id number] INP/OBS CARE(HIGH) JUANCHO GARLAND DO Dec 24, 2024 21:06
[2024-12-25 02:55] VITALS: O2SAT 18
[2024-12-25 06:00] VITALS: BP 131/64; PULSE 65; RESP 20; TEMP 97.9; O2SAT 98
[2024-12-25 06:56] LABS: ALBUMIN 2.5 G/DL (3.4-5.0); ANION GAP 10 (8-16); BLOOD UREA NITROGEN 18 MG/DL (7-18); BUN/CREATININE RATIO 12.9 (10.0-20.0); CALCIUM 8.1 MG/DL (8.5-10.1); CHLORIDE 106 MMOL/L (99-107); CREATININE 1.39 MG/DL (0.60-1.10); GLUCOSE 102 MG/DL (70-104); SODIUM 141 MMOL/L (135-145); TOTAL CARBON DIOXIDE 25.5 MMOL/L (24-32); eCRCL 48 ML/MIN; eGFR 50 ML/MIN
[2024-12-25] MEDS: aspirin 81mg tab.chew PO SCH (08:18)
[2024-12-25] MEDS: clopidogrel 75mg tablet PO SCH (08:18)
[2024-12-25 08:30] VITALS: RESP 16; O2SAT 98
[2024-12-25 08:41] LABS: BASOPHILS % (AUTO) 0.4 % (0-1); EOSINOPHILS # (AUTO) 0.2 X10'3 (0-0.9); EOSINOPHILS % (AUTO) 2.2 % (0-6); HEMATOCRIT 23.5 % (42.0-52.0); HEMOGLOBIN 7.9 g/dl (14.0-17.9); LYMPHOCYTES # (AUTO) 1.9 X10'3 (1.1-4.8); LYMPHOCYTES % (AUTO) 20.8 % (21-51); MEAN CORPUSCULAR HEMOGLOBIN 29.8 PG (27.0-31.0); MEAN CORPUSCULAR HGB CONC 33.8 g/dL (33.0-36.5); MEAN PLATELET VOLUME 7.3 FL (7.4-10.4); MONOCYTES # (AUTO) 0.6 X10'3 (0-0.9); MONOCYTES % (AUTO) 6.1 % (2-12); NEUTROPHILS # (AUTO) 6.4 X10'3 (1.8-7.7); NEUTROPHILS % (AUTO) 70.5 % (42-75); PLATELET COUNT 232 X10'3 (140-440); RED BLOOD COUNT 2.67 X10'6 (4.70-6.10); WHITE BLOOD COUNT 9.1 X10'3 (4.5-11.0)
[2024-12-25 10:30] LABS: HEMATOCRIT 24.6 % (42.0-52.0); HEMOGLOBIN 8.4 g/dl (14.0-17.9); MEAN CORPUSCULAR HEMOGLOBIN 29.7 PG (27.0-31.0); MEAN CORPUSCULAR HGB CONC 34.1 g/dL (33.0-36.5); MEAN PLATELET VOLUME 7.3 FL (7.4-10.4); PLATELET COUNT 258 X10'3 (140-440); RED BLOOD COUNT 2.83 X10'6 (4.70-6.10); RED CELL DISTRIBUTION WIDTH 14.2 % (11.5-14.5); WHITE BLOOD COUNT 10.1 X10'3 (4.5-11.0)
[2024-12-25 11:00] VITALS: BP 147/75; PULSE 82; RESP 18; TEMP 97.3; O2SAT 95
[2024-12-25 12:42] VITALS: RESP 18
[2024-12-25] MEDS ORDERED: CLOP75TA34 PO (13:49)
[2024-12-25] MEDS ORDERED: HYDR-3972 PO (13:49)
[2024-12-25] MEDS ORDERED: NORT10CA2 PO (13:49)
[2024-12-25] MEDS ORDERED: NICO1PAT41 TOP (13:49)
[2024-12-25] MEDS ORDERED: ASPI81TA53 PO (13:49)
--- NOTE | 2024-12-25 20:25 | DISCHARGE SUMMARY ---
Discharge Summary Providers to CC ~ Discharge Summary Admission Diagnosis: RIGHT SFA BLOCKAGE, PVD Hospital Course DATE OF ADMISSION: 12/21/2024 DATE OF DISCHARGE: 12/25/2024 Discharge Diagnosis\\Comment: Acute stenosis of the right superficial femoral artery/peripheral vascular disease, right groin and thigh pain, tobacco abusem LOLLY, normocytic anemia Operations\\Procedures: Angiogram with stent placement in the right superficial femoral artery Consultants: Dr. Hector Duvall vascular surgeon, Dr. Aron Patel interventional radiologists Complications: None Condition on DC: Stable New Medications: Nicotine (Nicoderm Cq) 7 Mg Patch.td24 1 PATCH TOP DAILY for smoking cessation for 30 Days, #30 PATCH 0 Refills Do not smoke while on a nicotine patch this could significantly elevate your blood pressure and cause you to have a stroke Aspirin (Children's Aspirin) 81 Mg Tab.chew 81 MG PO DAILY@0830, #30 TAB.CHEW Clopidogrel Bisulfate (Clopidogrel) 75 Mg Tablet 75 MG PO DAILY, #30 TAB Do not stop medication unless instructed by prescriber. Hydrocodone Bit/Acetaminophen (Hydrocodon-Acetaminophn 10-325 tablet) 10mg- 325mg Tablet 1 TAB PO Q6H PRN for severe pain (7-10), #20 TAB Nortriptyline Hcl (Nortriptyline Hcl) 10 Mg Capsule 10 MG PO HS, #30 CAP Continued Medications: Omeprazole (Prilosec) 40 Mg Capsule 1 CAP PO DAILY for 30 Days, #30 CAP Discharge Summary: Patient was admitted by Dr. Karla Ca with the following HPI:"Patient is 74-year-old male with known history of upper back pain, GERD Hickman's esophagus and Crohn's disease. He mentioned that his right great toe was hurting for almost for a month but in last couple of days he noticed the blue discoloration over his right feet. He also restarted smoking which he quit. Patient is able to ambulate but feels pain over right lower extremity. Currently he is only taking omeprazole and not on any other medication. He used to follow in [place] but currently does not have any PCP. He has upper back pain and his balance is not very good currently. Further workup done in ER which showed signs of Stenosis of right superficial femoral artery. ER physician contacted Dr. Powell. He requests admission of the patient, we will see him on an inpatient arita. Hospitalist services contacted for admission. Patient denied any other symptoms" A CTA of the abdominal aorta with lower extremity runoff demonstrated high-grade greater than 90% short segment of the distal right superficial femoral artery secondary to atheromatous clot. Vascular surgeon was consulted and recommended Interventional Radiology do an angiogram and stent for which Dr. Patel performed the angiogram and stent placement on 12/23/2024 the patient has been on heparin drip was transitioned to p.o. aspirin and Plavix did fairly well physical therapy on the however with the recommendations of one more day of physical therapy for which the patient did well with the following day and was discharged home with home health On the morning of discharge the patient has a drop in his hemoglobin from 10.1 to 7.9 however recheck of labs demonstrated a hemoglobin of 8.4 the patient felt well and was asymptomatic and that has recommended recheck a CBC in one-week in the follow up with in two weeks. I discuss smoking cessation with the patient on the afternoon of 12/24/2024 the patient states he is not going to smoke anymore I did discharge the patient with a 7 mg nicotine patch change daily. And did have thigh pain and requested pain medication for discharge I discharge the patient was [place] 10/325 1 tablet every 6 hours for severe pain 20 tablets and started the patient is nortriptyline 10 mg q.h.s. which will also help with pain. The patient has a acute kidney injury on presentation creatinine 1.70 this improved to 1.39 on day discharge his acute kidney injury was possibly secondary to ATN Gen. No acute distress alert and oriented 4 Lungs clear to ascultation bilaterally, no wheezes rales or rhonchi appreciated Heart normal sinus rhythm no murmurs rubs or clicks noted Abdomen soft nontender bowel sounds are normoactive Lower extremities no clubbing cyanosis, nor edema appreciated bilaterally The patient felt ready to be discharged and was medically cleared to be discharged with home health on 12/25/2024 The patient was seen and evaluated on day of discharge. Time spent on discharge 35 minutes *Problems/Diagnosis: (1) Stenosis of superficial femoral artery Status: Acute Total Time Spent on D/C: > 30 Minutes Date of Service: Dec 25, 2024 Billing Provider: JUANCHO GARLAND DO Common Visit Codes: [id number]-TRT/OBS DISCH DAY >30min JUANCHO GARLAND DO Dec 25, 2024 20:25
== END 2024-12-25 14:30 | disposition home or self-care (01) | DRG 252 ==
LOC: ER 21:01 → ED HOLD 12-21 07:20 → EDBEDREQ 12-21 08:38 → SUR 3N 12-21 08:53
PROVIDERS: ADMIT Internal Medicine; ATTEND Internal Medicine
PROC: B4201ZZ Computerized Tomography (CT Scan) of Abdominal Aorta using Low Osmolar Contrast (ICD-10-PCS; 2024-12-20)
PROC: B4241ZZ Computerized Tomography (CT Scan) of Superior Mesenteric Artery using Low Osmolar Contrast (ICD-10-PCS; 2024-12-20)
PROC: B4281ZZ Computerized Tomography (CT Scan) of Bilateral Renal Arteries using Low Osmolar Contrast (ICD-10-PCS; 2024-12-20)
PROC: B42C1ZZ Computerized Tomography (CT Scan) of Pelvic Arteries using Low Osmolar Contrast (ICD-10-PCS; 2024-12-20)
PROC: B42H1ZZ Computerized Tomography (CT Scan) of Bilateral Lower Extremity Arteries using Low Osmolar Contrast (ICD-10-PCS; 2024-12-20)
PROC: B4211ZZ Computerized Tomography (CT Scan) of Celiac Artery using Low Osmolar Contrast (ICD-10-PCS; 2024-12-20)
PROC: B42H1ZZ Computerized Tomography (CT Scan) of Bilateral Lower Extremity Arteries using Low Osmolar Contrast (ICD-10-PCS; 2024-12-20)
PROC: 047K3DZ Dilation of Right Femoral Artery with Intraluminal Device, Percutaneous Approach (ICD-10-PCS; principal; 2024-12-23)
PROC: B41G1ZZ Fluoroscopy of Left Lower Extremity Arteries using Low Osmolar Contrast (ICD-10-PCS; 2024-12-23)
PROC: B41C1ZZ Fluoroscopy of Pelvic Arteries using Low Osmolar Contrast (ICD-10-PCS; 2024-12-23)
PROC: B41F1ZZ Fluoroscopy of Right Lower Extremity Arteries using Low Osmolar Contrast (ICD-10-PCS; 2024-12-23)
DX: I73.9 Peripheral vascular disease, unspecified (principal); N17.0 Acute kidney failure with tubular necrosis; K50.90 Crohn's disease, unspecified, without complications; K22.70 Barrett's esophagus without dysplasia; K21.9 Gastro-esophageal reflux disease without esophagitis; F17.210 Nicotine dependence, cigarettes, uncomplicated; D64.9 Anemia, unspecified
CPT/HCPCS: 36415; 37226; 71045; 75635; 80048; 80053; 82550; 83605; 83735; 84484; 85025; 85027; 85610; 85730; 87040; 87081; 93005; 93922; 97116; 97161; 97530; 99152; 99153; 99285; A4314; A4349; A4615; A4620; A6213; A6250; A6590; C1725; C1758; C1760; C1769; C1876; C1894; G0378; J1171; J1644; J2270; J2405; J7030; Q9967

== ENCOUNTER 2025-04-14 14:11 | Outpatient (CLI) | payer OTHER ==
[~2025-04-14 14:11] MED LIST: ASPI81TA53 PO; CLOP75TA34 PO; HYDR-3972 PO; NICO1PAT41 TOP; NORT10CA2 PO; OMEP40CA21 PO
--- NOTE | 2025-04-14 18:31 | VASCULAR REPORT ---
Indication: Stent placement distal right SFA Technique: Real- time ultrasound images of the lower extremity with grayscale, color, and spectral wave Doppler. Comparison: 12/21/2024 Findings: Triphasic waveforms right DIGITAL MEDIA MANAGER, right SFA. The right SFA stent demonstrates triphasic waveforms. Biphasic waveform right popliteal artery. Biphasic waveform right posterior tibial and dorsalis pedis arteries. Triphasic waveforms left DIGITAL MEDIA MANAGER, SFA, popliteal, posterior tibial arteries. Biphasic waveform left dorsalis pedis artery Peak systolic velocities are as follows (in cm/s): Right: Common femoral artery: 181 Profunda femoris: 100 Proximal superficial femoral: 115 Mid superficial femoral artery: 106 Distal superficial femoral artery: 167 Popliteal artery: 86 Posterior tibial artery: 62 Dorsalis pedis artery: 82 KEVAN: 0.88 Left: Common femoral artery: 151 Profunda femoris: 68 Proximal superficial femoral: 105 Mid superficial femoral artery: 105 Distal superficial femoral artery: 127 Popliteal artery: 79 Posterior tibial artery: 94 Dorsalis pedis artery: 81 KEVAN: 1.03 Impression: Interval significantly improved KEVAN in the right lower extremity measuring 0.88, previously 0.67 on examination from 12/23/2024. No hemodynamically significant stenosis within the right lower extremity identified. Mild 2 moderate peripheral arterial disease of the right lower extremity with KEVAN of 0.88.
--- NOTE | 2025-04-14 18:31 | VASCULAR REPORT ---
Indication: Stent placement distal right SFA Technique: Real- time ultrasound images of the lower extremity with grayscale, color, and spectral wave Doppler. Comparison: 12/21/2024 Findings: Triphasic waveforms right ORACLE TECHNICAL DEVELOPER, right SFA. The right SFA stent demonstrates triphasic waveforms. Biphasic waveform right popliteal artery. Biphasic waveform right posterior tibial and dorsalis pedis arteries. Triphasic waveforms left ORACLE TECHNICAL DEVELOPER, SFA, popliteal, posterior tibial arteries. Biphasic waveform left dorsalis pedis artery Peak systolic velocities are as follows (in cm/s): Right: Common femoral artery: 181 Profunda femoris: 100 Proximal superficial femoral: 115 Mid superficial femoral artery: 106 Distal superficial femoral artery: 167 Popliteal artery: 86 Posterior tibial artery: 62 Dorsalis pedis artery: 82 KEVAN: 0.88 Left: Common femoral artery: 151 Profunda femoris: 68 Proximal superficial femoral: 105 Mid superficial femoral artery: 105 Distal superficial femoral artery: 127 Popliteal artery: 79 Posterior tibial artery: 94 Dorsalis pedis artery: 81 KEVAN: 1.03 Impression: Interval significantly improved KEVAN in the right lower extremity measuring 0.88, previously 0.67 on examination from 12/23/2024. No hemodynamically significant stenosis within the right lower extremity identified. Mild 2 moderate peripheral arterial disease of the right lower extremity with KEVAN of 0.88.
== END 2025-04-14 23:59 | disposition home or self-care (01) ==
LOC: VAS 14:11
PROVIDERS: ATTEND Surgery
DX: I73.9 Peripheral vascular disease, unspecified (principal)
CPT/HCPCS: 93922; 93925

== ENCOUNTER 2025-05-30 11:58 | Outpatient (CLI) | payer OTHER ==
--- NOTE | 2025-05-30 13:15 | RADIOLOGY REPORT ---
EXAM: CT CT CHEST LOW DOSE INDICATION: PERSONAL HISTORY OF NICOTINE DEPENDENCE TECHNIQUE: Low-dose noncontrast CT of the lungs have been obtained. All CT scans at this facility use dose modulation, iterative reconstruction, and/or weight based dosing when appropriate to reduce radiation dose to as low as reasonably achievable. COMPARISON: DI CHEST,SINGLE VIEW on DOS: 12/23/24 FINDINGS: LOWER NECK: No abnormal mediastinal lymphadenopathy. Abnormal left axillary lymphadenopathy compatible with metastatic disease measuring 1.1 cm short axis LYMPH NODES/MEDIASTINUM: No abnormal lymph nodes by CT size criteria CARDIOVASCULAR: Normal cardiac size. No pericardial effusion. Ascending aortic aneurysmal dilation measuring up to 41 mm. Coronary artery calcifications. UPPER ABDOMEN: Limited evaluation secondary to photon starvation. Unremarkable. MUSCULOSKELETAL: Multilevel degenerative change of the visualized spine. Prior healed right posterior 10th rib fracture. Significant areas of osseous remodeling of the left posterior 4th, 5th, 6th ribs compatible with osseous metastatic disease CHEST WALL: Unremarkable. LUNG/PLEURAL SPACE: Significant presumed pleural-based versus osseous base neoplastic disease with significant lytic appearance of left posterolateral ribs . Atelectasis in bilateral lung bases IMPRESSION: 1. Significant appearance of presumed pleural-based versus osseous metastatic disease with significant osseous destruction of left posterior upper ribcage and subsequent pleural-based soft tissue extension. No suspicious mediastinal lymphadenopathy. 2. Abnormal left axillary lymphadenopathy and asymmetric left chest wall marginal edema. LUNG-RADS: 4X- Suspicious RECOMMENDATION: Tissue sampling along the left pleura to left upper ribcage from posterior approach recommended. Alternatively, consider sampling of the left axillary lymph nodes. CITATION: Lung cancer screening categorization and recommendations per [employer] Lung-RADS Version 1.0 (http://[email or web address].org/Quality- Safety/Resources/LungRADS).
== END 2025-05-30 23:59 | disposition home or self-care (01) ==
LOC: RAD 11:58
PROVIDERS: ATTEND Surgery
DX: Z12.2 Encounter for screening for malignant neoplasm of respiratory organs (principal); R59.0 Localized enlarged lymph nodes; M47.814 Spondylosis without myelopathy or radiculopathy, thoracic region; Z87.891 Personal history of nicotine dependence
CPT/HCPCS: 71271